=== PATIENT | male | born 1950 | race Caucasian/White ===

== ENCOUNTER 2021-03-31 09:50 | Emergency (ER) | payer MEDICARE ==
[~2021-03-31] VITALS: Ht 185.4 cm; Wt 99.0 kg
[2021-03-31] MEDS ORDERED: NORVASC5 MG PO (11:01)
== END 2021-03-31 11:11 | disposition home or self-care (01) ==
LOC: ED 09:50
DX: S60.512A Abrasion of left hand, initial encounter (principal); S60.511A Abrasion of right hand, initial encounter; S00.81XA Abrasion of other part of head, initial encounter; S00.31XA Abrasion of nose, initial encounter; R03.0 Elevated blood-pressure reading, without diagnosis of hypertension; E11.9 Type 2 diabetes mellitus without complications; W01.10XA Fall on same level from slipping, tripping and stumbling with subsequent striking against unspecified object, initial encounter
CPT/HCPCS: 99283

== ENCOUNTER 2025-10-12 11:13 | Emergency (ER) | payer MEDICARE ==
[~2025-10-12] VITALS: Ht 185.4 cm; Wt 90.9 kg
[~2025-10-12 11:13] MED LIST: NORVASC5 MG PO
[2025-10-12 15:53] LABS: BASOPHILS 0.5 % (0.2-1.2); BLOOD/HGB, URINE TRACE-I (Negative); EOSINOPHILS 2.8 % (0.8-7.0); KETONE, URINE NEGATIVE (Negative); LEUK ESTERASE, URINE NEGATIVE (negative); LYMPHOCYTES 22.1 % (21.8-53.1); MCH 29.2 PG (25.7-32.2); MCHC 33.8 g/dL (32.3-36.5); MCV 86.3 fL (79.0-92.2); MONOCYTES 8.8 % (5.3-12.2); NEUTROPHILS 65.6 % (34.0-67.9); NITRITE, URINE NEGATIVE (negative); RBC 4.73 M/uL (4.63-6.08)
[2025-10-12 16:00] LABS: BACTERIA, URINE NONE SEEN /hpf (negative); CASTS, URINE NONE SEEN \\lpf; CRYSTALS, URINE NONE SEEN (0-1+); EPITHELIAL CELLS, URINE SQUAMOUS 1+ /lpf (0-1+); REFLEX CULTURE, URINE No (No)
[2025-10-12 16:21] LABS: ALT (SGPT) 18.0 U/L (14-59); AST (SGOT) 16.0 U/L (15-37); GLOMERULAR FILTRATION RATE,EST 62.0 mL/min (>60); PROTEIN, TOTAL 7.6 g/dL (6.4-8.2); UREA NITROGEN 8.0 mg/dL (7-18)
[2025-10-12] MEDS ORDERED: TAMSULOSIN HCL 0.4 MG CAP PO ONE (17:45)
[2025-10-12] MEDS ORDERED: LIDOCAINE 2% VISCOUS 6 ML SYR TOP ONE (17:45)
[2025-10-12] MEDS ORDERED: TAMSULOSIN HCL0.4 MG PO (18:41)
== END 2025-10-12 19:00 | disposition home or self-care (01) ==
LOC: ED 11:13
PROVIDERS: Emergency Medicine
DX: R33.9 Retention of urine, unspecified (principal); E11.9 Type 2 diabetes mellitus without complications
CPT/HCPCS: 36415; 51702; 74177; 80053; 81001; 83690; 85025; 99284-25; A4311; Q9967